=== PATIENT | female | born 1965 | race American Indian/Alaskan Native ===

== ENCOUNTER 2021-11-27 11:22 | Emergency (ER) | payer SELFPAY ==
[2021-11-27 12:00] VITALS: BP 180/94; PULSE 73; TEMP 98.3; BMI 35.9
[2021-11-27 16:41] LABS: BASO % 0.7 % (0-2.0); EOS % 4.4 % (0-4.5); HEMATOCRIT 43.5 % (32.4-45.2); HEMOGLOBIN 14.4 GM/dL (10.7-15.3); LYMPH % 43.9 % (8-40); MCH 29.5 pg (25.7-33.7); MCHC 33.2 g/dl (32.0-36.0); MEAN CELL VOLUME 88.8 fl (80-96); MEAN PLT VOLUME 10.9 fl (7.5-11.1); MONO % 7.5 % (3.8-10.2); NEUT % 43.5 % (42.8-82.8); PLATELET COUNT 180 10^3/uL (134-434); RBC 4.89 M/mm3 (3.60-5.2); RDW 13.8 % (11.6-15.6); WHITE BLOOD COUNT 8.5 K/mm3 (4.0-10.0)
[2021-11-27 17:10] LABS: CALCIUM 8.4 mg/dL (8.5-10.1)
[2021-11-27 17:11] LABS: ALBUMIN 3.6 g/dl (3.4-5.0); BLOOD UREA NITROGEN 9.2 mg/dL (7-18)
[2021-11-27 17:14] LABS: CREATININE 0.7 mg/dL (0.55-1.3)
[2021-11-27 17:15] LABS: BILIRUBIN,TOTAL 0.5 mg/dL (0.2-1)
[2021-11-27 17:16] LABS: TOT PROT 7.4 g/dl (6.4-8.2)
== END 2021-11-27 17:39 | disposition home or self-care (01) ==
LOC: JER 11:22
DX: R22.31 Localized swelling, mass and lump, right upper limb (principal)
CPT/HCPCS: 36415; 80053; 85025; 93971; 99284-25